=== PATIENT | male | born 1940 | race Caucasian/White ===

== ENCOUNTER 2024-06-10 23:54 | Emergency (ER) | payer OTHER, SELFPAY ==
[2024-06-10 23:59] VITALS: BP 131/82
--- NOTE | 2024-06-11 00:28 | ED.GENMED ---
History of Present Illness
General
Chief Complaint: Head Injury
Time Seen by Provider: 06/11/24 00:13
History of Present Illness
History of Present Illness:
HPI: The patient was taking off his shirt and lost his balance. He usually has his help him and he does frequently lose his balance. He fell and struck his head against the wall. He takes half a baby aspirin daily. He does not take any
other anticoagulation. Family notes some cognitive deficits over the last several months but reports that they seem to worsen over the past week. is concerned because he struck his head.
EXAM:
GENERAL: Well appearing in no distress
CERVICAL SPINE: No midline c-spine tenderness with excellent AROM
HEENT: Surgical deformity noted to the superior aspect of the right ear
HEAD: No evidence of the patient has a 4 cm laceration over the parieto-occipital scalp
CHEST: No chest wall tenderness, normal heart sounds
LUNGS: Equal lung sounds, no respiratory distress
ABDOMEN: No abdominal tenderness, no peritoneal signs
EXTREMITIES: Normal active range of motion, decreased active range of motion at the lower extremities more so on the left side which is chronic
NEURO: Fair strength all extremities, the patient gives a reasonable history however he could not name the month, normal speech/language
TIME OF INITIAL ENCOUNTER: 12 AM
NUMBER AND COMPLEXITY OF PROBLEMS ADDRESSED AT THE ENCOUNTER
� Chronic conditions affecting care: CAD, diabetes
� Acute Exacerbation and/or Progression of Chronic Illness: This is an acute problem
� Differential Diagnosis includes: Scalp laceration, intracranial hemorrhage, hematoma
AMOUNT AND/OR COMPLEXITY OF DATA TO BE REVIEWED AND ANALYZED
� I performed an independent evaluation of and my interpretation is:
EKG:
CT: CT head personally viewed and agree with radiologist interpretation there is no acute hemorrhage other than scalp hematoma
X-rays:
Laboratory Studies:
Other:
� Review of other/old records: No old records available for review in [facility]
� Clinical information was obtained by an independent historian: I spoke to and daughter at bedside
� Prescriptions/Medications Considered but not given: Considered narcotic analgesia however the patient already has oxycodone at home and I generally would not recommend further narcotics
� Further testing considered but not performed:
RISK OF COMPLICATIONS AND/OR MORBIDITY OR MORTALITY OF PATIENT MANAGEMENT
� Social determinants of health affecting care: Lives at home with family
� Discussion with other providers:
� Escalation of care including admission/observation vs risk of discharge considered: The patient's laceration was cleaned and sutured and CT imaging reassuring. The patient's left hip pain is chronic.
Phy Exam
Physical Exam
Physical Exam:
See HPI
Course
Orders/Labs/Results
Orders:
Orders
06/11/24 00:26
CT Head W/o Iv Contrast Urgent
Comment:
Reason For Exam: trauma
06/11/24 01:12
Tetanus/Diphth/Acelpertussis [Adacel] 0.5 ml IM .ONCE ONE
06/11/24 01:17
Acetaminophen [Tylenol] 1,000 mg PO NOW STA
Vital Signs
Initial and Last Documented VS:
Initial Vital Signs
Temp Resp BP Pulse Ox
97.9 F 18 131/82 97
06/10/24 23:59 06/10/24 23:59 06/10/24 23:59 06/10/24 23:59
Last Documented Vital Signs
Temp Pulse Resp BP Pulse Ox
97.9 F 72 20 131/82 97
06/10/24 23:59 06/11/24 01:45 06/11/24 01:45 06/10/24 23:59 06/11/24 01:45
Procedures
Laceration Closure
Head:
Status of Wound: clean
Description of Wound Edges: ragged
Preparation: cleaned with saline
Skin Closure Material: skin angel
Additional information:
6 angel placed
*Critical Care Note
Total Time (30-74mins, 75-104mins- exclusive of procedures): Not Applicable
ED Attending Note
-
Portions of this chart may have been created with voice recognition software.� Occasional wrong word or��sound alike� substitutions may have occurred due to the inherent limitations of voice recognition software.
Discharge Plan
Departure
Patient Disposition: Home (Routine Discharge)
Date of Disposition: 06/11/24
Time of Disposition: 01:12
Patient with high blood pressure during this ER visit?: Yes
Discharge Problem:
Laceration of scalp
Instructions: Head Injury in Adults (DC), Laceration Repair With Stitches (DC), BLOOD PRESSURE
Activity Restrictions/Additional Instructions:
CAT scan of the brain shows no bleeding internally. Tetanus shot is good for the next 10 years. Return here if worse or any other concerns. Have angel removed by your doctor in approximately 7 days.
Interventions
Interventions:
*Risk Screen - Suicide Last Done: 06/10/24 23:54
*General Assessment Last Done: 06/11/24 01:45
*Neglect/Abuse Screening Last Done: 06/11/24 01:45
ED- Fall Risk Assessment Last Done: 06/11/24 00:22
*ED COVID-19 Vaccine History Last Done: 06/11/24 01:45
*Nursing Disposition Last Done: 06/11/24 01:45
ED- Neurological Assessment Last Done: 06/11/24 00:22
ED-Skin Assessment Last Done: 06/11/24 00:22
Discharge Date and Time
Print Language: MEXICAN
[2024-06-11] MEDS: ADACEL 0.5 ML IM (01:21)
[2024-06-11] MEDS: TYLENOL 1000 MG PO (01:26)
== END 2024-06-11 02:15 | disposition home or self-care (01) ==
LOC: EMR 23:54
PROVIDERS: EMERGENCY PHYSICIAN Emergency Medicine; FAMILY PHYSICIAN Internal Medicine
DX: S01.01XA Laceration without foreign body of scalp, initial encounter (principal); W19.XXXA Unspecified fall, initial encounter; Z23 Encounter for immunization; R41.89 Other symptoms and signs involving cognitive functions and awareness; Z79.82 Long term (current) use of aspirin
CPT/HCPCS: 99284; 90471; 12001; 70450; 90715

== ENCOUNTER 2025-04-07 11:42 | Emergency (ER) | payer OTHER, SELFPAY ==
[2025-04-07 11:47] VITALS: BP 85/42
[2025-04-07 12:07] VITALS: BP 100/62
[2025-04-07 13:01] VITALS: BP 109/58
[2025-04-07] MEDS: NSS 1000 IV (13:25)
--- NOTE | 2025-04-07 13:28 | ED.GENMED ---
History of Present Illness
General
Chief Complaint: Abdominal Symptoms
Time Seen by Provider: 04/07/25 12:09
History of Present Illness
History of Present Illness:
84-year-old male with history of CAD status post stenting, chronic hip and back pain from degenerative disc disease, chronic constipation, dementia presenting to the emergency department for issues with constipation and urination. Patient lives at
home with who notes that patient had not urinated for the past day. Patient however had also been constipated. She gave him multiple laxatives and softeners. Patient had this issue in the past where he was severely constipated and then was
retaining urine. They were getting ready to take him to the hospital and patient had a very large bowel movement and then subsequently had some urination. On arrival, patient is a limited historian. Patient is somnolent, falling asleep during
examination, however arousable. notes that patient did not sleep very much last night, had been complaining of pain secondary to suspected constipation. No report of any fever or recent illness. Patient has issues with ambulation at
baseline, has aides and home care come to the house, however have 24-hour care. No additional history reported at this time
Phy Exam
Physical Exam
Physical Exam:
General: Well-appearing, no clinical signs of dehydration, nontoxic and in no acute distress
HEENT: protecting airway
Neck: appears supple
CV: Normal heart rate, regular rhythm, no evidence of cyanosis
Resp: No accessory muscle use, no increased work of breathing, lungs clear to auscultation bilaterally
Abd: Soft and non-distended, no tenderness to palpation, normal bowel sounds
Extremities: No deformities, no swelling, no erythema, pulses and sensation intact
Neuro: alert, no focal neurologic deficit
: deferred
Rectal: deferred
Psych: Normal affect
Skin: Intact
Course
Orders/Labs/Results
Orders:
Orders
04/07/25 12:33
0.9% Sodium Chloride 1000 ml [Nss] 1,000 ml IV BOLUS
04/07/25 12:34
Electrocardiogram (*1) Urgent
Reason for Study: Chest Pain
EKG- Treatment ONCE
04/07/25 13:01
Case Management Consult ONCE
Case Management Consult: Discharge Planning
04/07/25 13:21
Complete Blood Count/With Diff Urgent
Comprehensive Metabolic Panel Urgent
Urinalysis Reflex To Culture Urgent
Date Specimen was Collected: 04/07/25
Time Specimen was Collected: 12:42
Urine Microscopic Reflex Cult Urgent
04/07/25 14:06
0.9% Sodium Chloride 1000 ml [Nss] 1,000 ml IV BOLUS
Abnormal Lab Results
04/07/25 04/07/25
13:21 13:25
RBC 3.85 L 10^6/uL
(4.70-6.10)
Hgb 10.3 L g/dL
(13.0-18.0)
Hct 31.7 L %
(39.0-52.0)
MCH 26.8 L pg
(27.0-31.0)
MCHC 32.5 L g/dL
(33.0-37.0)
RDW 16.7 H %
(11.5-14.5)
Absolute Neuts (auto) 6.8 H 10^3/uL
(1.4-6.5)
Absolute Lymphs (auto) 0.8 L 10^3/uL
(1.2-3.4)
Neutrophils % 82.5 H %
(42.2-75.2)
Lymphocytes % 9.5 L %
(20.5-51.1)
Carbon Dioxide 20 L mmol/L
(22-30)
BUN 37 H mg/dl
(9-20)
Creatinine 2.0 H mg/dL
(0.7-1.3)
Glucose 205 H mg/dl
(70-99)
Urine Albumin (Reflex) 2+ A
(Neg - Trace)
POC Glucose 213 H mg/dl
(70-99)
04/07/25 13:21
04/07/25 13:21
Vital Signs
Initial and Last Documented VS:
Initial Vital Signs
Temp Pulse Resp Pulse Ox
98.5 F 100 20 95
04/07/25 11:43 04/07/25 11:43 04/07/25 11:43 04/07/25 11:43
Last Documented Vital Signs
Temp Pulse Resp BP Pulse Ox
98.5 F 100 20 85/42 95
04/07/25 11:43 04/07/25 11:43 04/07/25 11:43 04/07/25 11:47 04/07/25 13:29
MDM/Problems Addressed
MDM/Problems Addressed:
84-year-old male with history of CAD status post stenting, chronic hip and back pain from degenerative disc disease, chronic constipation, dementia presenting for constipation and urinary retention. Vital signs on arrival significant for mildly low
blood pressure, which is since improved.
On exam patient is resting comfortably, no acute distress or discomfort. Per family at bedside, patient had a very large bowel movement prior to arrival. On abdominal exam, no tenderness to palpation, soft and nondistended. Without present
concern for obstructive pathology. Patient however on arrival was straight cathed with about 700cc of urine back. Suspect that retention could have been from severe constipation, which is not relieved, versus UTI. Plan for urinary testing,
laboratory analysis, EKG.
14:10 - Labs unremarkable. Mild elevation of creatinine, however notes some chronic elevation. No prior for comparison. Patient continues to sleep, and reports that patient appears much more comfortable. Ultimately feel stable for
discharge. Case management to see to help patient with some home resources.
*Pulse Oximetry
SaO2: 95
Oxygen Mode of Delivery: Room air
Patient hypoxic: no
*EKG
Interpreted by ED Provider?: Yes
EKG Intrepretation Date: 04/07/25
EKG Intrepretation Time: 13:38
Interpretation: normal
Comparison EKG: no comparison EKG present
Heart Rate: 100
Rate: normal
Rhythm: sinus
[place]: left axis deviation
Interval: normal interval
QRS Pattern: normal QRS
Ischemia: no ischemia
*Critical Care Note
Total Time (30-74mins, 75-104mins- exclusive of procedures): Not Applicable
ED Attending Note
-
Portions of this chart may have been created with voice recognition software.� Occasional wrong word or��sound alike� substitutions may have occurred due to the inherent limitations of voice recognition software.
Discharge Plan
Departure
Referrals:
Radha Mckoy MD [Family Provider, General]
Interventions
Interventions:
*General Assessment Last Done: 04/07/25 11:43
*Neglect/Abuse Screening Last Done: 04/07/25 11:43
Discharge Date and Time
Print Language: KHMER
[2025-04-07 13:35] LABS: Hematocrit 31.7 % (39.0-52.0); Hemoglobin 10.3 g/dL (13.0-18.0); Mean Corp Hgb Conc. 32.5 g/dL (33.0-37.0); Mean Corpuscular Volume 82.3 fL (80.0-94.0); Nucleated Red Blood Cells % 0 % (-); Platelet Count 180 10^3/uL (130-400); Red Cell Dist. Width 16.7 % (11.5-14.5)
[2025-04-07 13:39] LABS: Glucose - Point of Care 213 mg/dl (70-99)
[2025-04-07 13:49] LABS: Urine Character Clear (Clear)
[2025-04-07 13:53] LABS: ALT (SGPT) 15 U/L (0-50); AST (SGOT) 25 U/L (17-59); Albumin 4.1 g/dl (3.5-5.0); Alkaline Phosphatase 99 U/L (38-126); Blood Urea Nitrogen 37 mg/dl (9-20); Calcium 9.1 mg/dl (8.4-10.2); Carbon Dioxide 20 mmol/L (22-30); Chloride 105 mmol/L (98-107); Glucose 205 mg/dl (70-99); Potassium 4.4 mmol/L (3.5-5.1); Sodium 137 mmol/L (135-145); Total Protein 6.9 g/dl (6.3-8.2); eGFR 32.30
[2025-04-07 14:00] VITALS: BP 98/52
[2025-04-07 14:43] LABS: Urine Red Blood Cell 0-2 /HPF (0-2); Urine Squamous Cell 0-2 /LPF (Few); Urine White Cell 0-2 /HPF (0-5)
[2025-04-07 15:00] VITALS: BP 123/72
--- NOTE | 2025-04-07 15:24 | CM ---
CM met with pt, spouse and son/Bill son
Pt slept through assessment
Pt with advanced dementia and does not recognize family or place often
He and spouse typically reside in a [address] [address] in [place]
Currently staying with dtr in [place] as spouse with surgery a few weeks prior and recovering
Dtr's house has a hospital bed, WW and WC
On good days, pt able to ambulate with a WW
1 person assist for all personal care
Pt is current with [facility]
He has a [facility] funded [employer] 16 hours weekly
No plan for hospital admission
Spouse notes she plans to take pt back home
Has multiple family assisting with his care
Private duty list provided, she declined placement or further resources
No other dc needs noted
Ambulance arranged back to dtr's home in [place] through [facility]
Call to [facility]- ANIVAL order is not needed as pt not admitted
DC paperwork faxed to [phone]
[2025-04-07 15:42] VITALS: BMI 26.4
[2025-04-07 16:00] VITALS: BP 107/66
== END 2025-04-07 17:25 | disposition home or self-care (01) ==
LOC: EMR 11:42
PROVIDERS: EMERGENCY PHYSICIAN Student in an Organized Health Care Education/Training Program; FAMILY PHYSICIAN Internal Medicine
DX: R33.9 Retention of urine, unspecified (principal); K59.00 Constipation, unspecified; I25.10 Atherosclerotic heart disease of native coronary artery without angina pectoris; F03.90 Unspecified dementia, unspecified severity, without behavioral disturbance, psychotic disturbance, mood disturbance, and anxiety; Z95.5 Presence of coronary angioplasty implant and graft
CPT/HCPCS: 99283; 96360; 80053; 81003; 81015; 82962; 85025; 93005

== ENCOUNTER 2025-04-20 20:57 | Emergency (ER) | payer OTHER, SELFPAY ==
[2025-04-20 21:02] VITALS: BP 77/60
[2025-04-20 21:27] VITALS: BP 101/89
[2025-04-20 21:30] VITALS: BP 123/62
[2025-04-20 21:34] VITALS: BMI 25.5
[2025-04-20 21:58] LABS: Hematocrit 35.7 % (39.0-52.0); Hemoglobin 11.8 g/dL (13.0-18.0); Mean Corp Hgb Conc. 33.1 g/dL (33.0-37.0); Mean Corpuscular Volume 82.3 fL (80.0-94.0); Nucleated Red Blood Cells % 0 % (-); Platelet Count 228 10^3/uL (130-400); Red Cell Dist. Width 16.3 % (11.5-14.5)
--- NOTE | 2025-04-20 22:05 | ED.GENMED ---
History of Present Illness
General
Chief Complaint: Bowel Problem
Source: patient, spouse and family (daughter at bedside)
Exam Limitations: dementia
Time Seen by Provider: 04/20/25 21:15
History of Present Illness
History of Present Illness:
84 yo from home w h/o fecal impactions, chronic constipation, CAD, IDDM, dementia, CABG x 5, chronic hip and back pain from DJD, presents with complaints of rectal pain and a sensation of burning in the rectum. The patient mentions he has been
experiencing these symptoms, alongside constipation, which has persisted since his last medical visit approximately two to three weeks ago for same. During that previous visit, it was noted that the patient underwent a procedure involving manual
disimpaction. The patient denies any chest or abdominal pain at present. He was given a Fleets suppository and has been taking Miralax a couple of times but not on a regular basis.
Takes a 1/2 pill of Oxycontin BID for pain. Family also gives him Colace.
Past History
Past History
ED Past Medical History: CAD, IDDM and Other (chronic constipation)
ED Past Surgical History: Appendectomy, Cardiac (CABG x5) and Orthopedic
Review of Systems
Review of Systems
Allergies reviewed?: Yes
All Other Systems: ROS reviewed and negative except as documented in HPI and ROS
Constitutional: Denies fever
Respiratory: Denies trouble breathing
Cardiac: Denies chest pain
ABD/GI: Reports abdominal pain and constipated; Denies nausea, vomiting, bloody stools or black stools
: Reports difficulty voiding (family state no urine since this a.m.)
Phy Exam
Physical Exam
Physical Exam:
GENERAL: No acute distress. A&Ox3.
CONSTITUTIONAL: Afebrile.
EYES: clear, conjunctivae normal
ENMT: moist mucus membranes
RESPIRATORY: Regular respirations, nonlabored, lungs clear.
CARDIOVASCULAR: Regular rate and rhythm, no murmurs, no rubs.
GI: Soft, nontender, normal BS
Rectal: Fecal impaction
MUSCULOSKELETAL: Well perfused. Edema
SKIN: Warm, dry, pink
PSYCH: Dementia, anxious mood and affect. Well kept, interactive and appropriate
NEUROLOGIC: Awake, alert and oriented to name. Dementia. No focal neurological deficits
Course
Orders/Labs/Results
Orders:
Orders
04/20/25 21:06
ECG [Electrocardiogram (*1)] Urgent
Reason for Study: Chest Pain
EKG- Treatment ONCE
04/20/25 21:13
CR Chest Portable - 1 View Urgent
Comment:
Reason For Exam: Pain constipated hypotensive
Reason Study Needs to be Portable: Patient Unstable
04/20/25 21:53
CBC/With Diff [Complete Blood Count/With Diff] Urgent
CMP [Comprehensive Metabolic Panel] Urgent
Lipase Urgent
NT-proBNP Urgent
Comment: ADD ON
04/20/25 22:04
Enema- Treatment ONCE
Type: Milk of Molasses
04/20/25 23:07
0.9% Sodium Chloride 500 ml [Nss] 500 ml IV BOLUS
04/20/25 23:09
Add On- LAB Urgent
Tests Added?: BNP
04/20/25 23:23
Bladder Scan- Treatment ONCE
04/20/25 23:45
Burger [Burger Placement- Treatment] ONCE
Reason for insertion: Acute Retention
Abnormal Lab Results
04/20/25 04/21/25
21:53 00:50
RBC 4.34 L 10^6/uL
(4.70-6.10)
Hgb 11.8 L g/dL
(13.0-18.0)
Hct 35.7 L %
(39.0-52.0)
RDW 16.3 H %
(11.5-14.5)
Abs Immat Gran (auto) 0.1 H 10^3/uL
(0-0.05)
Absolute Neuts (auto) 7.7 H 10^3/uL
(1.4-6.5)
Neutrophils % 80.1 H %
(42.2-75.2)
Lymphocytes % 13.3 L %
(20.5-51.1)
Carbon Dioxide 19 L mmol/L
(22-30)
BUN 35 H mg/dl
(9-20)
Creatinine 2.2 H mg/dL
(0.7-1.3)
Glucose 182 H mg/dl
(70-99)
POC Glucose 163 H mg/dl
(70-99)
04/20/25 21:53
04/20/25 21:53
Vital Signs
Initial and Last Documented VS:
Initial Vital Signs
Temp Pulse Resp BP Pulse Ox
97.4 F 98 24 77/60 100
04/20/25 21:02 04/20/25 21:02 04/20/25 21:02 04/20/25 21:02 04/20/25 21:02
Last Documented Vital Signs
Temp Pulse Resp BP Pulse Ox
97.4 F 93 21 113/94 100
04/20/25 21:02 04/21/25 00:21 04/21/25 01:58 04/21/25 01:58 04/21/25 01:58
MDM/Problems Addressed
Differential Diagnosis Includes:
constipation, fecal impaction.
Acute urine retention
MDM/Problems Addressed:
84 yo from home w h/o fecal impactions, chronic constipation, CAD, IDDM, dementia, CABG x 5, chronic hip and back pain from DJD, presents with complaints of rectal pain and a sensation of burning in the rectum. The patient mentions he has been
experiencing these symptoms, alongside constipation, which has persisted since his last medical visit approximately two to three weeks ago for same. During that previous visit, it was noted that the patient underwent a procedure involving manual
disimpaction. The patient denies any chest or abdominal pain at present. He was given a Fleets suppository and has been taking Miralax a couple of times but not on a regular basis.
Takes a 1/2 pill of Oxycontin BID for pain. Family also gives him Colace.
CBC with no clinically significant abnormality
CMP renal function at baseline, no indication for US at this time.
After two manual disimpactions by me and two mild and molasses enemas,
CXR: Radiology report read: IMPRESSION:
Mild bibasilar atelectasis and/or pneumonia.
Mild diffuse interstitial prominence may reflect pulmonary interstitial edema and/or pneumonitis. Cannot rule out underlying chronic interstitial lung disease.
BNP pending.
Family state pt has not voided since this a.m.
Bladder scan showing 830 ml
Burger catheter ordered
Pt continues to expel large amounts of formed stool and liquid stool
wants the burger catheter removed as last time he was here for same problem, after he moved his bowels, they removed the catheter before he went home, and he was urinating normally until today.
Due to his dementia, she is afraid he will pull it out, family at bedside agree and they are vigilant with him making sure he urinates regularly
Catheter will be removed at discharge
*Pulse Oximetry
SaO2: 100
Oxygen Mode of Delivery: Room air
Patient hypoxic: no
*Critical Care Note
Total Time (30-74mins, 75-104mins- exclusive of procedures): Not Applicable
ED Attending Note
-
Portions of this chart may have been created with voice recognition software.� Occasional wrong word or��sound alike� substitutions may have occurred due to the inherent limitations of voice recognition software.
Discharge Plan
Departure
Patient Disposition: Home (Routine Discharge)
Patient with high blood pressure during this ER visit?: No
Condition: Fair
Discharge Problem:
Fecal impaction, Acute retention of urine
Instructions: Constipation, Adult (DC), Fecal Impaction (DC), Urinary retention - Discharge instructions
Prescriptions:
No Action
polyethylene glycol 3350 [Miralax] 17 gram Powder In Packet
17 g PO DAILYPRN PRN (Reason: constipation)
atorvastatin 10 mg tablet
5 mg PO HS
olanzapine 2.5 mg tablet
2.5 mg PO BID
aspirin 81 mg Tablet,Delayed Release (Dr/Ec)
81 mg PO HS
acetaminophen 500 mg tablet
1,000 mg PO BIDPRN PRN (Reason: mild pain)
nystatin 100,000 unit/gram cream
1 applic TOPICAL BID
Fleet Enema 19-7 gram/118 mL Enema
118 ml PA ONCE PRN (Reason: constipation)
docusate sodium [Stool Softener] 100 mg Capsule
100 mg PO DAILYPRN PRN (Reason: constipation)
oxycodone 5 mg tablet
5 mg PO HS
cholecalciferol (vitamin D3) 25 mcg (1,000 unit) Tablet
25 mcg PO HS
Senna Extended Release
1 tab PO BIDPRN PRN (Reason: constipation)
insulin aspart U-100 [Novolog U-100 Insulin aspart] 100 unit/mL Solution
1 sliding scale dose SC DIRECTED
Patient Comments:
04/20/2025, per family, pt. injects this med. before meals as per a sliding scale but they do not know what that sliding scale is.
insulin aspart U-100 [Novolog U-100 Insulin aspart] 100 unit/mL Solution
5 unit SC DAILY
insulin glargine 100 unit/mL (3 mL) Insulin Pen
10 unit SC DAILY
Medical Marijuana cream
1 applic topical TIDPRN PRN (Reason: mild pain)
Patient Comments:
04/20/2025, pt. uses medical marijuana cream and applies it to his neck, L hip, B/L knees and feet TIDPRN for mild pain.
Referrals:
Tej Beauchamp MD [Active, Urology] - As needed
Radha Mckoy MD [Family Provider, General]
Activity Restrictions/Additional Instructions:
As we discussed, continue Miralax at least every other day, every day if needed.
Give Fleets enema if no BM for 3 days.
Continue Colace daily. Encourage at least 6 glasses water/liquid daily
Be sure Mr Jose urinates as usual, if not urine in the next 24-48 hours bring him back for bladder scan.
I have provided you with the name of a Urologist to use if needed.
Interventions
Interventions:
*Risk Screen - Suicide Last Done: 04/20/25 21:02
*General Assessment Last Done: 04/20/25 21:34
*Neglect/Abuse Screening Last Done: 04/20/25 21:02
*ED- Fall Risk Assessment Last Done: 04/20/25 21:34
*ED COVID-19 Vaccine History Last Done: 04/20/25 21:34
*Nursing Disposition Last Done: 04/21/25 02:00
JT-Iaglvm-Iakjrobioj Assessment Last Done: 04/20/25 21:34
Discharge Date and Time
Discharge Date/Time: 04/21/25 02:15
Print Language: TRISTANIAN
[2025-04-20 22:22] LABS: ALT (SGPT) 14 U/L (0-50); AST (SGOT) 24 U/L (17-59); Albumin 4.7 g/dl (3.5-5.0); Alkaline Phosphatase 108 U/L (38-126); Blood Urea Nitrogen 35 mg/dl (9-20); Calcium 9.8 mg/dl (8.4-10.2); Carbon Dioxide 19 mmol/L (22-30); Chloride 101 mmol/L (98-107); Estimated Creatinine Clearance 25 ml/min; Glucose 182 mg/dl (70-99); Lipase 132 U/L (23-300); Potassium 4.6 mmol/L (3.5-5.1); Sodium 137 mmol/L (135-145); Total Protein 8.0 g/dl (6.3-8.2); eGFR 28.81
[2025-04-20] MEDS: NSS 500 IV (23:12)
[2025-04-20 23:33] VITALS: BP 151/87
--- NOTE | 2025-04-20 23:45 | PHANOTE ---
04/20/2025, pt.'s family and spouse state that pt. is taking Novolog 5 units daily and before meals on a sliding scale as well as 10 units of insulin glargine daily; could not confirm w/ pharmacy and ecw records.
[2025-04-21 00:21] VITALS: BP 106/60
[2025-04-21 00:52] LABS: Glucose - Point of Care 163 mg/dl (70-99)
[2025-04-21 01:58] VITALS: BP 113/94
== END 2025-04-21 02:15 | disposition home or self-care (01) ==
LOC: EMR 20:57
PROVIDERS: Registered Nurse; EMERGENCY PHYSICIAN Emergency Medicine; FAMILY PHYSICIAN Internal Medicine
DX: K56.41 Fecal impaction (principal); I25.10 Atherosclerotic heart disease of native coronary artery without angina pectoris; E11.9 Type 2 diabetes mellitus without complications; F03.90 Unspecified dementia, unspecified severity, without behavioral disturbance, psychotic disturbance, mood disturbance, and anxiety; Z90.49 Acquired absence of other specified parts of digestive tract; Z95.1 Presence of aortocoronary bypass graft
CPT/HCPCS: 99283; 96360; 71045; 80053; 82962; 83690; 83880; 85025; 93005